=== PATIENT | male | born 1945 | race Caucasian/White ===

== ENCOUNTER 2020-08-24 08:24 | Outpatient (REF) | payer OTHER, SELFPAY | END 2020-08-24 08:25 | disposition home or self-care (01) | LOC: HO.SCI 08:24 | DX: Z13.89 Encounter for screening for other disorder (principal) ==

== ENCOUNTER 2020-09-06 14:01 | Outpatient (REF) | payer OTHER, SELFPAY ==
[2020-09-06 14:35] LABS: Blood Urea Nitrogen 21 mg/dL (9-16); Estimated Glomerular Filt Rate 54
--- NOTE | 2020-09-06 14:45 | MR_ITS ---
EXAMINATION: MR BRAIN WITHOUT AND WITH CONTRAST CLINICAL INFORMATION: Diplopia and cerebellar ataxia. Assess for brainstem or cerebellar lesion. COMPARISON: There are no prior studies available for comparison. TECHNIQUE: Multiplanar, multisequence MRI of the brain was obtained before and after the intravenous administration of 7.5 mL Gadavist. FINDINGS: No diffusion abnormalities are identified to suggest an acute or subacute infarct. No mass effect or midline shift is seen. There is mild commensurate prominence of the ventricles and sulci consistent with diffuse volume loss. There are areas of increased T2 and FLAIR signal in the periventricular and subcortical white matter consistent with chronic microvascular ischemic changes. There are lacunar infarcts versus prominent perivascular spaces in the torres radiata extending from the atria of the lateral ventricles bilaterally. No extra-axial fluid collections are seen. The brainstem and cerebellum are normal. On postcontrast imaging, there is no abnormal parenchymal or leptomeningeal enhancement. There is a punctate nonspecific focus of low gradient signal in the right cerebellar hemisphere medially, which may be consistent with sequelae of prior microhemorrhage or microcalcification. It has low signal on the other sequences without enhancement. The craniovertebral junction and marrow signal are normal. There is an empty sella. There is loss of the flow void of the right vertebral artery in the upper cervical region and intradurally. The dural venous sinus flow-voids are maintained. There are degenerative changes of the temporomandibular joints. The mastoid air cells and paranasal sinuses are well-aerated. MR/MR head/brain wo/w con IMPRESSION: 1. There are no acute bleeds or infarcts. No masses are demonstrated. There is no abnormal enhancement. 2. There is loss of flow void from the right vertebral artery in the upper neck and intradurally. Recommend CTA or MRA of the head and neck with contrast for further evaluation. 3. There is a punctate focus of low gradient signal in the right cerebellar hemisphere medially as described above. There is diffuse loss and there are chronic microvascular ischemic changes. 4. Attempts were made to contact the referring physicians' office in the evening of 09/07/2020, but they were not able to be reached. Further attempts will be made in the morning of 09/08/2020.
== END 2020-09-06 14:02 | disposition home or self-care (01) ==
LOC: HO.MRI 14:01
PROVIDERS: Visit Provider Psychiatry & Neurology Neurology
DX: G11.9 Hereditary ataxia, unspecified (principal); H53.2 Diplopia
CPT/HCPCS: 36415; 70553; 82565; 84520; A9585

== ENCOUNTER 2020-10-12 13:03 | Outpatient (REF) | payer OTHER, SELFPAY ==
--- NOTE | ~2020-10-12 | MR_ITS ---
EXAMINATION: MR ANGIOGRAPHY BRAIN WITHOUT CONTRAST MR ANGIOGRAM OF THE NECK WITHOUT AND WITH CONTRAST CLINICAL INFORMATION: Diplopia. COMPARISON: MRI head dated 09/06/2020. TECHNIQUE: 3-D [id number] MR angiography of the [place] obtained. Pre and postcontrast MRA of the neck acquired. The patient received 10 mL of Gadavist intravenously for the study. Slightly limited study with motion artifacts. Stenoses are assessed in accordance with NASCET criteria unless otherwise indicated. FINDINGS: MRA HEAD: There is absence of flow-related signal in the right vertebral artery. On the postcontrast MRA extending into the posterior fossa, there is thready signal in the vessel which appears occluded distally. A mild amount of retrograde flow noted into the distal right vertebral artery from the left side. The left vertebral artery and basilar artery are patent with mild smooth narrowing in the mid to lower basilar artery segment. There are mild multifocal luminal irregularities in the posterior cerebral arteries which are otherwise patent. A focal moderate to severe stenosis is noted in the proximal P2 segment of the right [employer]. The internal carotid arteries are patent. There is a severe focal stenosis in the anterior cavernous segment of the left internal carotid artery. Atherosclerotic wall calcifications present bilaterally. The COURTNEY vascular complexes are normal with an azygos configuration. 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 The MCA vasculature is otherwise normal in caliber. MRA NECK: The imaged aortic arch is normal and the origins of the great vessels are patent. The left common carotid artery is normal. There is a focal 50% stenosis in the proximal left internal carotid artery distal to the carotid bulb. The remainder of the cervical left ICA is normal. The right common carotid artery is normal in caliber. The right carotid bifurcation is normal. There is a 30% stenosis in the proximal right ICA distal to the carotid bulb. The remainder of the cervical right internal carotid artery is normal in caliber. The left vertebral artery is mildly narrowed at its origin. The remainder of the cervical left vertebral artery is widely patent. On the right side, no contrast opacification or flow-related signal is seen in the proximal V1 segment. There is thready and incomplete contrast opacification in the nondominant V2 segment with significant multifocal stenoses. The V3 segment demonstrates contrast opacification, though small in caliber. MR/MR angio neck wo/w con IMPRESSION: Limited study with motion artifacts. MRA Head: Absence of normal flow-related signal in the right vertebral artery. Moderate to severe focal stenosis in the right WA[employer]. Severe stenosis in the anterior cavernous segment of the left ICA. 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 MRA Neck: Absence of contrast opacification at the origin of the nondominant right vertebral artery from presumed proximal occlusion. Reconstitution of flow from a potential muscular branch at the proximal V2 segment with incomplete, thready contrast in the V2 segment with multifocal significant stenoses. 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 Approximate 50% stenosis in the proximal left internal carotid artery distal to the carotid bulb. Milder 30% stenosis in the proximal right ICA.
--- NOTE | ~2020-10-12 | MR_ITS ---
EXAMINATION: MR ANGIOGRAPHY BRAIN WITHOUT CONTRAST MR ANGIOGRAM OF THE NECK WITHOUT AND WITH CONTRAST CLINICAL INFORMATION: Diplopia. COMPARISON: MRI head dated 09/06/2020. TECHNIQUE: 3-D [id number] MR angiography of the [place] obtained. Pre and postcontrast MRA of the neck acquired. The patient received 10 mL of Gadavist intravenously for the study. Slightly limited study with motion artifacts. Stenoses are assessed in accordance with NASCET criteria unless otherwise indicated. FINDINGS: MRA HEAD: There is absence of flow-related signal in the right vertebral artery. On the postcontrast MRA extending into the posterior fossa, there is thready signal in the vessel which appears occluded distally. A mild amount of retrograde flow noted into the distal right vertebral artery from the left side. The left vertebral artery and basilar artery are patent with mild smooth narrowing in the mid to lower basilar artery segment. There are mild multifocal luminal irregularities in the posterior cerebral arteries which are otherwise patent. A focal moderate to severe stenosis is noted in the proximal P2 segment of the right [employer]. The internal carotid arteries are patent. There is a severe focal stenosis in the anterior cavernous segment of the left internal carotid artery. Atherosclerotic wall calcifications present bilaterally. The COURTNEY vascular complexes are normal with an azygos configuration. 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 The MCA vasculature is otherwise normal in caliber. MRA NECK: The imaged aortic arch is normal and the origins of the great vessels are patent. The left common carotid artery is normal. There is a focal 50% stenosis in the proximal left internal carotid artery distal to the carotid bulb. The remainder of the cervical left ICA is normal. The right common carotid artery is normal in caliber. The right carotid bifurcation is normal. There is a 30% stenosis in the proximal right ICA distal to the carotid bulb. The remainder of the cervical right internal carotid artery is normal in caliber. The left vertebral artery is mildly narrowed at its origin. The remainder of the cervical left vertebral artery is widely patent. On the right side, no contrast opacification or flow-related signal is seen in the proximal V1 segment. There is thready and incomplete contrast opacification in the nondominant V2 segment with significant multifocal stenoses. The V3 segment demonstrates contrast opacification, though small in caliber. MR/MR angio head wo con IMPRESSION: Limited study with motion artifacts. MRA Head: Absence of normal flow-related signal in the right vertebral artery. Moderate to severe focal stenosis in the right [employer]. Severe stenosis in the anterior cavernous segment of the left ICA. 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 MRA Neck: Absence of contrast opacification at the origin of the nondominant right vertebral artery from presumed proximal occlusion. Reconstitution of flow from a potential muscular branch at the proximal V2 segment with incomplete, thready contrast in the V2 segment with multifocal significant stenoses. 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 Approximate 50% stenosis in the proximal left internal carotid artery distal to the carotid bulb. Milder 30% stenosis in the proximal right ICA.
== END 2020-10-12 13:04 | disposition home or self-care (01) ==
LOC: HO.MRI 13:03
PROVIDERS: Visit Provider Psychiatry & Neurology Neurology
DX: H53.2 Diplopia (principal)
CPT/HCPCS: 70544; 70549; A9585